=== PATIENT | male | born 1955 | race African-American/Black ===

== ENCOUNTER 2016-10-30 07:24 | Emergency (ER) | payer OTHER ==
[~2016-10-30] VITALS: Wt 77.1 kg
[~2016-10-30 07:24] MED LIST: BENZ1TAB7; FLUO20CA22
[2016-10-30] MEDS ORDERED: IBUPROFEN 600 MG TAB PO ONE (08:00)
[2016-10-30] MEDS ORDERED: ACETAMINOPHEN 500 MG TAB PO STA (08:28)
[2016-10-30] MEDS ORDERED: ACETAMINOPHEN 500 MG TAB ONE (08:29)
--- NOTE | 2016-10-30 08:38 | ERD ---
ER Documentation Chief Complaint Date/Time DATE: 10/30/16 TIME: 08:28 Chief Complaint LEFT HAND PAIN FOR THE PAST FEW DAYS. NO TRAUMA OR DISCOLORATIONS HPI 61 -year-old male comes emergency department left hand and wrist swelling with pain that started for 5 days ago. Patient describes achy pain that radiates from the risks of the hand, associated with swelling and it started after he woke up from sleep. He denies trauma. He denies fevers or chills. ROS All systems reviewed and are negative except as per history of present illness. Medications Home Meds Active Scripts Ibuprofen* (Motrin*) 600 Mg Tab, 600 MG PO Q6, #30 TAB Prov:SRINIVAS SAM PA-C 10/30/16 Reported Medications Fluoxetine Hcl* (Fluoxetine Hcl*) 20 Mg Capsule 08/17/11 Benztropine Mesylate* (Cogentin*) 1 Mg Tab 08/17/11 Allergies Allergies: Uncoded Allergies: FLU SHOT (Allergy, Unknown, 09/27/13) unknown PMhx/Soc History of Surgery: Yes (Leg Surgery) Anesthesia Reaction: No Hx Neurological Disorder: No Hx Respiratory Disorders: No Hx Cardiac Disorders: No Hx Psychiatric Problems: Yes (schizophrenia) Hx Miscellaneous Medical Probl: No Hx Alcohol Use: Yes Hx Substance Use: No Hx Tobacco Use: Yes Smoking Status: Current every day smoker Physical Exam Vitals Vital Signs Date Time Temp Pulse Resp B/P Pulse Ox O2 Delivery O2 Flow Rate FiO2 10/30/16 07:27 98.6 98 21 133/91 98 Physical Exam General: Well-developed, well-nourished. The patient appears in no acute distress. HEENT: Head is normocephalic, atraumatic. No scleral icterus. Neck: Supple. Nontender. Lungs: Clear to auscultation. Normal air movement. Heart: Regular rate and rhythm. S1 and S2 are normal. No murmurs, gallops, or rubs. Abdomen: Nondistended. Extremities: Left wrist swelling, left hand swelling, tender to palpation over the lateral left wrist. Patient has full range of motion with left wrist and dorsiflexion. He is able to make a fist. Capillary refill less than 2 seconds. There is no erythema or lymphatic streaking. Neurologic: Alert and oriented 3. No focal deficits. Normal speech and gait. Skin: Normal turgor. No rash or lesions. Results 24 hrs Current Medications Medications (Trade) Dose Ordered Sig/Laxmi Route PRN Reason Start Time Stop Time Status Last Admin Dose Admin Ibuprofen (Motrin) 600 mg ONCE ONCE PO 10/30/16 08:00 10/30/16 08:01 DC 10/30/16 08:38 Acetaminophen (Tylenol Tab) 1,000 mg ONCE STAT PO 10/30/16 08:28 10/30/16 08:29 DC 10/30/16 08:38 Acetaminophen (Tylenol Tab) 500 mg STK-MED ONCE .ROUTE 10/30/16 08:29 10/30/16 08:30 DC DIAGNOSTIC IMAGING REPORT Patient: TIP MUHAMMAD : 1955 Age: 61 Sex: M MR #: [id number] DOS: 10/30/16749 Ordering MD: SRINIVAS SAM PA-C Location: [facility] Room/Bed: PROCEDURE: Ultrasound of the left upper extremity venous system. CLINICAL INDICATION: Left upper extremity pain and swelling.. TECHNIQUE: Apyne scale with and without compression, color doppler, spectral doppler of the venous system of the left upper extremity was performed. Venous augmentation maneuvers were utilized. COMPARISON: No prior studies are available for comparison. FINDINGS: Left: Jugular vein: Patent and compressible. Subclavian vein: Patent and compressible. Axillary vein: Patent and compressible. Brachial vein: Patent and compressible. Basilic vein: Patent and compressible. Cephalic vein: Patent and compressible. Soft tissues: Normal IMPRESSION: 1. No evidence of left upper extremity deep vein thrombosis. RPTAT: AACC Physician Saeed Date Time Electronically viewed and signed by Physician Saeed on 10/30/2016 08: 52 JH/ CC: SRINIVAS SAM PA-C DIAGNOSTIC IMAGING REPORT Patient: TIP MUHAMMAD : 1955 Age: 61 Sex: M MR #: [id number] DOS: 10/30/16 075 Ordering MD: SRINIVAS SAM PA-C Location: [facility] Room/Bed: PROCEDURE: XR Left Wrist. CLINICAL INDICATION: Wrist pain for 45 days. TECHNIQUE: AP, lateral and oblique views of the left wrist were performed. COMPARISON: No prior studies are available for comparison. FINDINGS: A 5.2 mm cyst is noted in the triquetrum a. There is slight narrowing of the joint space between the triquetrum and lunate bone. The other bony elements and joint spaces are unremarkable. There is soft tissue swelling adjacent to the left ulnar styloid process and surrounding the left wrist. No acute bony fracture is noted. IMPRESSION: 1. There is nonspecific soft tissue swelling around the circumference of the left wrist. No underlying subcutaneous emphysema, foreign body or fracture is identified. 2. 5.2 mm cyst along the radial side of the triquetrum. RPTAT:AAJJ Physician Fouzia Date Time Electronically viewed and signed by Ramon Loredo Physician on 10/30/2016 08:45 JM/ CC: SRINIVAS SAM PA-C Procedures/MDM ED course: Patient was given ibuprofen for pain. Patient's left wrist was placed in a Velcro wrist splint. Splint Assessment: Neurovascularly intact post splint placement with good fit. 61-year-old male comes to emergency department with left wrist and left hand swelling and pain, atraumatic. Differential diagnosis includes tendinitis, fracture, dislocation, infection, DVT.There is evidence of soft tissue swelling on the left wrist, without evidence of a fracture. There is no evidence of DVT on venous ultrasound study. Patient symptoms are most consistent with tendinitis, he was placed in a Velcro wrist splint, advised to take anti- inflammatories and recheck. Incidental finding was seen, there is a cyst on the radial aspect of the triquetrum. Patient's blood pressure was elevated (>120/80) but appears stable without evidence of hypertension emergency or urgency. The patient was counseled about the risks of hypertension and urged to pursue outpatient monitoring and therapy within a week with their primary care physician. . Departure Diagnosis: Primary Impression: Left wrist pain Condition: Good SRINIVAS SAM PA-C Oct 30, 2016 08:38
--- NOTE | 2016-10-30 08:46 | RADRPT ---
PROCEDURE: XR Left Wrist. CLINICAL INDICATION: Wrist pain for 45 days. TECHNIQUE: AP, lateral and oblique views of the left wrist were performed. COMPARISON: No prior studies are available for comparison. FINDINGS: A 5.2 mm cyst is noted in the triquetrum a. There is slight narrowing of the joint space between th e triquetrum and lunate bone. The other bony elements and joint spaces are unremarkable. There is soft tissue swelling adjacent to the left ulnar styloid process and surrounding the left wrist. No acute bony fracture is noted. IMPRESSION: 1. There is nonspecific soft tissue swelling around the circumference of the left wrist. No underly ing subcutaneous emphysema, foreign body or fracture is identified. 2. 5.2 mm cyst along the radial side of the triquetrum. RPTAT:AAJJ Physician Fouzia Date Time Electronically viewed and signed by Physician Fouzia on 10/30/2016 08:45 RUTHIE/
--- NOTE | 2016-10-30 08:52 | RADRPT ---
PROCEDURE: Ultrasound of the left upper extremity venous system. CLINICAL INDICATION: Left upper extremity pain and swelling.. TECHNIQUE: Payne scale with and without compression, color doppler, spectral doppler of the venous system of the left upper extremity was performed. Venous augmentation maneuvers were utilized. COMPARISON: No prior studies are available for comparison. FINDINGS: Left: Jugular vein: Patent and compressible. Subclavian vein: Patent and compressible. Axillary vein: Patent and compressible. Brachial vein: Patent and compressible. Basilic vein: Patent and compressible. Cephalic vein: Patent and compressible. Soft tissues:Normal IMPRESSION: 1. No evidence of left upper extremity deep vein thrombosis. RPTAT: AACC Physician Saeed Date Time Electronically viewed and signed by Physician Saeed on 10/30/2016 08:52 /
[2016-10-30] MEDS ORDERED: IBUP-1542 PO (09:03)
== END 2016-10-30 09:16 | disposition home or self-care (01) ==
LOC: FTE 07:24
DX: M25.532 Pain in left wrist (principal); F17.210 Nicotine dependence, cigarettes, uncomplicated
CPT/HCPCS: 29125; 73110; 93971; Z7502; Z7610

== ENCOUNTER → 2017-03-19 | Day surgery (SDC) | END | disposition home or self-care (01) ==